=== PATIENT | female | born 1935 ===

== ENCOUNTER 2019-11-01 15:19 | Inpatient (IN) | payer MEDICARE, MEDICAID ==
[~2019-11-01] VITALS: Ht 157.5 cm; Wt 46.1 kg
[2019-11-01] MEDS ORDERED: ACETAMINOPHEN 325 MG TABLET PO ONE (16:15)
[2019-11-01 16:23] LABS: BASOPHILS % (AUTO) 0.4 % (0.0-2.0); EOSINOPHILS % (AUTO) 4.8 % (1.0-6.0); HEMATOCRIT 38.4 % (36-46); HEMOGLOBIN 12.4 g/dL (12.0-16.0); LYMPHOCYTES % (AUTO) 10.2 % (22.0-44.0); MEAN CORPUSCULAR HEMOGLOBIN 31.9 pg (26.0-34.0); MEAN CORPUSCULAR HGB CONC 32.4 G/dL (31.0-37.0); MEAN CORPUSCULAR VOLUME 98 fL (80-100); MONOCYTES # (AUTO) 1.7 K/uL (0.1-1.0); NEUTROPHILS # (AUTO) 6.8 K/uL (1.8-7.7); NEUTROPHILS % (AUTO) 67.6 % (40.0-70.0); PLATELET COUNT (AUTO) 296 K/uL (150-450); RED CELL DISTRIBUTION WIDTH 15.3 % (11.5-14.5)
[2019-11-01] MEDS ORDERED: ALBUTEROL SULFATE HFA 90 MCG/PUFF 8 GM INHALER IH ONE (16:30)
[2019-11-01 16:38] LABS: D-DIMER 0.94 mg/L FEU (0.00-0.50); INR 1.1 (0.9-1.1); PROTHROMBIN TIME 11.4 SEC (9.4-11.6)
[2019-11-01 16:59] LABS: BILIRUBIN,TOTAL 0.7 mg/dL (0.1-1.0); CALCIUM, TOTAL 8.9 mg/dL (8.8-10.5); CREATININE 1.41 mg/dL (0.60-1.30); MAGNESIUM 1.9 mg/dL (1.80-2.40); PHOSPHORUS 3.8 mg/dL (2.5-4.9); POTASSIUM 5.1 mmol/L (3.5-5.1); TOTAL PROTEIN, SERUM 7.4 g/dL (6.4-8.2)
[2019-11-01] MEDS ORDERED: AZITHROMYCIN 500 MG/NS 250 ML IV ONE (17:15)
[2019-11-01] MEDS ORDERED: CefTRIAXone 1 GM/DEXTROSE 50 ML IV ONE (17:15)
[2019-11-01 17:43] LABS: ERYTHROCYTE SEDIMENTATION RATE 75 MM/HR (0-20)
[2019-11-01] MEDS ORDERED: ACETAMINOPHEN 325 MG TABLET PO PRN (17:45)
[2019-11-01] MEDS ORDERED: ONDANSETRON HCL 4 MG/2 ML VIAL IVP PRN (17:45)
[2019-11-01] MEDS ORDERED: FURO20 PO (17:52)
[2019-11-01] MEDS ORDERED: DIAZ2 PO (17:52)
[2019-11-01] MEDS ORDERED: TIOT185 IH (17:52)
[2019-11-01] MEDS ORDERED: APIX5TAB PO (17:52)
[2019-11-01] MEDS ORDERED: DIGO125T84 PO (17:52)
[2019-11-01] MEDS ORDERED: ADV100 IH (17:52)
[2019-11-01] MEDS ORDERED: LOSA25TA71 PO (17:52)
[2019-11-01] MEDS ORDERED: METF-911 PO (17:52)
[2019-11-01 20:33] LABS: GLUCOSE,POINT OF CARE 140 MG/DL (70-110)
[2019-11-02] MEDS ORDERED: ONDANSETRON HCL 4 MG/2 ML VIAL IVP PRN (01:30)
[2019-11-02] MEDS ORDERED: MAGNESIUM HYDROXIDE SUSPENSION 30 ML UDCUP PO PRN (01:30)
[2019-11-02] MEDS ORDERED: MORPHINE SULFATE 2 MG/ML SYRINGE IVP PRN (01:30)
[2019-11-02] MEDS ORDERED: ZOLPIDEM TARTRATE 5 MG TABLET PO PRN (01:30)
[2019-11-02] MEDS ORDERED: HYDROCODONE/ACETAMINOPHEN 5-325 MG TABLET PO PRN (01:30)
[2019-11-02] MEDS ORDERED: AZITHROMYCIN 500 MG/NS 250 ML IV SCH (01:30)
[2019-11-02] MEDS ORDERED: ACETAMINOPHEN 325 MG TABLET PO PRN (01:30)
[2019-11-02] MEDS ORDERED: BISACODYL 10 MG RECTAL RECTAL SUPPOSITORY PR PRN (01:30)
[2019-11-02] MEDS: DIGOXIN 125 MCG TABLET PO SCH (02:40)
[2019-11-02] MEDS: IPRATROPIUM BROMIDE 0.5 MG/2.5 ML NEB SOLUTION NEB PRN ×2 (03:25→11:05)
[2019-11-02] MEDS: ALBUTEROL SULFATE 2.5 MG/0.5 ML NEB SOLUTION NEB PRN ×2 (03:25→11:05)
[2019-11-02 03:37] LABS: GLUCOSE,POINT OF CARE 152 MG/DL (70-110)
[2019-11-02] MEDS: LOSARTAN POTASSIUM 25 MG TABLET PO SCH (07:31)
[2019-11-02 07:36] LABS: GLUCOSE,POINT OF CARE 121 MG/DL (70-110)
[2019-11-02] MEDS ORDERED: HEPARIN SODIUM,PORCINE 5,000 UNITS/ML VIAL SQ SCH (08:00)
[2019-11-02] MEDS ORDERED: APIXABAN 5 MG TABLET PO SCH (09:00)
[2019-11-02] MEDS: DOCUSATE SODIUM 100 MG CAPSULE PO SCH ×2 (10:27→22:00)
[2019-11-02] MEDS: DIAZEPAM 2 MG TABLET PO SCH (10:27)
[2019-11-02] MEDS: FUROSEMIDE 20 MG TABLET PO SCH ×2 (10:27→22:00)
[2019-11-02 12:41] LABS: BASOPHILS % (AUTO) 0.8 % (0.0-2.0); EOSINOPHILS % (AUTO) 2.1 % (1.0-6.0); HEMATOCRIT 34.7 % (36-46); HEMOGLOBIN 11.8 g/dL (12.0-16.0); LYMPHOCYTES # (AUTO) 0.8 K/uL (1.0-4.8); LYMPHOCYTES % (AUTO) 11.6 % (22.0-44.0); MEAN CORPUSCULAR HEMOGLOBIN 32.9 pg (26.0-34.0); MEAN CORPUSCULAR HGB CONC 33.9 G/dL (31.0-37.0); MEAN CORPUSCULAR VOLUME 97 fL (80-100); MONOCYTES # (AUTO) 1.2 K/uL (0.1-1.0); NEUTROPHILS # (AUTO) 5.1 K/uL (1.8-7.7); NEUTROPHILS % (AUTO) 69.5 % (40.0-70.0); PLATELET COUNT (AUTO) 244 K/uL (150-450); RED BLOOD CELL COUNT(AUTO) 3.58 MIL/uL (4.00-5.20); RED CELL DISTRIBUTION WIDTH 15.3 % (11.5-14.5)
[2019-11-02] MEDS: TIOTROPIUM BROMIDE 18 MCG/INH HANDIHALER [5] IH SCH (13:02)
[2019-11-02 13:12] LABS: ALBUMIN 2.6 g/dL (3.4-5.0); BILIRUBIN,TOTAL 0.7 mg/dL (0.1-1.0); CALCIUM, TOTAL 9.2 mg/dL (8.8-10.5); CREATININE 1.57 mg/dL (0.60-1.30); POTASSIUM 5.2 mmol/L (3.5-5.1); TOTAL PROTEIN, SERUM 6.5 g/dL (6.4-8.2)
[2019-11-02 16:50] VITALS: BP 170/104
[2019-11-02 18:00] VITALS: BP 162/82
[2019-11-02 18:11] VITALS: BP 170/104
[2019-11-02] MEDS ORDERED: SODIUM CHLORIDE 0.9% 500 ML IV ONE (20:12)
[2019-11-02 21:14] VITALS: BP 136/87
[2019-11-02] MEDS: CefTRIAXone 1 GM/DEXTROSE 50 ML IV SCH (22:00)
[2019-11-02] MEDS: AZITHROMYCIN 500 MG/NS 250 ML IV SCH (22:58)
[2019-11-02] MEDS ORDERED: HEPARIN SODIUM,PORCINE 5,000 UNITS/ML VIAL IVP PRN (23:15)
[2019-11-03 00:18] VITALS: BP 130/72
[2019-11-03] MEDS: HEPARIN SODIUM 25000 UNITS/D5W 250 ML IV PRN (00:23)
[2019-11-03] MEDS: DIGOXIN 125 MCG TABLET PO SCH (00:42)
[2019-11-03] MEDS: LOSARTAN POTASSIUM 25 MG TABLET PO SCH (05:51)
[2019-11-03 06:14] VITALS: BP 148/71
[2019-11-03 06:55] LABS: EOSINOPHILS % (AUTO) 1.3 % (1.0-6.0); HEMATOCRIT 35.2 % (36-46); LYMPHOCYTES # (AUTO) 1.1 K/uL (1.0-4.8); LYMPHOCYTES % (AUTO) 14.3 % (22.0-44.0); MEAN CORPUSCULAR HEMOGLOBIN 33.2 pg (26.0-34.0); MEAN CORPUSCULAR HGB CONC 34.2 G/dL (31.0-37.0); MEAN CORPUSCULAR VOLUME 97 fL (80-100); MONOCYTES # (AUTO) 1.5 K/uL (0.1-1.0); MONOCYTES % (AUTO) 19.9 % (2.0-9.0); NEUTROPHILS # (AUTO) 4.9 K/uL (1.8-7.7); NEUTROPHILS % (AUTO) 63.5 % (40.0-70.0); PLATELET COUNT (AUTO) 217 K/uL (150-450); RED BLOOD CELL COUNT(AUTO) 3.63 MIL/uL (4.00-5.20); RED CELL DISTRIBUTION WIDTH 15.2 % (11.5-14.5)
[2019-11-03 07:30] LABS: INR 1.9 (0.9-1.1); PROTHROMBIN TIME 18.9 SEC (9.4-11.6)
[2019-11-03 07:32] VITALS: BP 129/72
[2019-11-03] MEDS: FUROSEMIDE 20 MG TABLET PO SCH (08:38)
[2019-11-03] MEDS: DIAZEPAM 2 MG TABLET PO SCH (08:38)
[2019-11-03] MEDS: DOCUSATE SODIUM 100 MG CAPSULE PO SCH ×2 (08:39→22:20)
[2019-11-03] MEDS: TIOTROPIUM BROMIDE 18 MCG/INH HANDIHALER [5] IH SCH (09:52)
[2019-11-03 10:29] VITALS: BP 132/97
[2019-11-03 15:33] VITALS: BP 122/82
[2019-11-03] MEDS: CARVEDILOL 6.25 MG TABLET PO SCH ×2 (16:22→22:20)
[2019-11-03 16:28] LABS: CALCIUM, TOTAL 8.9 mg/dL (8.8-10.5); CREATININE 1.86 mg/dL (0.60-1.30); POTASSIUM 5.2 mmol/L (3.5-5.1)
[2019-11-03 16:34] LABS: DIGOXIN 3.87 ng/mL (0.90-2.00)
[2019-11-03] MEDS: HEPARIN SODIUM,PORCINE 5,000 UNITS/ML VIAL IVP PRN (17:14)
[2019-11-03 20:15] VITALS: BP 155/82
[2019-11-03] MEDS: FUROSEMIDE 40 MG TABLET PO SCH (22:20)
[2019-11-03] MEDS: ATORVASTATIN CALCIUM 20 MG TABLET PO SCH (22:20)
[2019-11-03] MEDS: CefTRIAXone 1 GM/DEXTROSE 50 ML IV SCH (22:20)
[2019-11-03] MEDS: AZITHROMYCIN 500 MG/NS 250 ML IV SCH (22:21)
[2019-11-04] VITALS (7 sets, daily range): BP systolic 111–152; BP diastolic 54–80
[2019-11-04] MEDS: LOSARTAN POTASSIUM 25 MG TABLET PO SCH (06:30)
[2019-11-04] MEDS: TIOTROPIUM BROMIDE 18 MCG/INH HANDIHALER [5] IH SCH (08:00)
[2019-11-04] MEDS: DIAZEPAM 2 MG TABLET PO SCH (08:38)
[2019-11-04] MEDS: FUROSEMIDE 40 MG TABLET PO SCH ×2 (08:38→21:24)
[2019-11-04] MEDS: DOCUSATE SODIUM 100 MG CAPSULE PO SCH ×2 (08:38→21:24)
[2019-11-04] MEDS: CARVEDILOL 6.25 MG TABLET PO SCH (08:40)
[2019-11-04 08:59] LABS: BASOPHILS % (AUTO) 0.9 % (0.0-2.0); EOSINOPHILS % (AUTO) 4.1 % (1.0-6.0); HEMATOCRIT 36.1 % (36-46); HEMOGLOBIN 12.2 g/dL (12.0-16.0); LYMPHOCYTES # (AUTO) 0.8 K/uL (1.0-4.8); LYMPHOCYTES % (AUTO) 9.1 % (22.0-44.0); MEAN CORPUSCULAR HEMOGLOBIN 33.2 pg (26.0-34.0); MEAN CORPUSCULAR HGB CONC 33.9 G/dL (31.0-37.0); MEAN CORPUSCULAR VOLUME 98 fL (80-100); MONOCYTES # (AUTO) 1.4 K/uL (0.1-1.0); MONOCYTES % (AUTO) 14.9 % (2.0-9.0); NEUTROPHILS # (AUTO) 6.6 K/uL (1.8-7.7); PLATELET COUNT (AUTO) 237 K/uL (150-450); RED BLOOD CELL COUNT(AUTO) 3.68 MIL/uL (4.00-5.20); RED CELL DISTRIBUTION WIDTH 15.1 % (11.5-14.5)
[2019-11-04 09:49] LABS: ALBUMIN 2.4 g/dL (3.4-5.0); BILIRUBIN,TOTAL 0.5 mg/dL (0.1-1.0); CALCIUM, TOTAL 8.8 mg/dL (8.8-10.5); CREATININE 1.81 mg/dL (0.60-1.30); MAGNESIUM 2.2 mg/dL (1.80-2.40); POTASSIUM 4.8 mmol/L (3.5-5.1)
[2019-11-04 09:53] LABS: DIGOXIN 3.05 ng/mL (0.90-2.00)
[2019-11-04] MEDS: ALBUTEROL SULFATE 2.5 MG/0.5 ML NEB SOLUTION NEB SCH ×3 (14:47→23:21)
[2019-11-04] MEDS: IPRATROPIUM BROMIDE 0.5 MG/2.5 ML NEB SOLUTION NEB SCH ×3 (14:47→23:21)
[2019-11-04] MEDS: HEPARIN SODIUM 25000 UNITS/D5W 250 ML IV PRN (17:56)
[2019-11-04] MEDS: ATORVASTATIN CALCIUM 20 MG TABLET PO SCH (21:24)
[2019-11-04] MEDS: CefTRIAXone 1 GM/DEXTROSE 50 ML IV SCH (21:24)
[2019-11-04] MEDS: AZITHROMYCIN 500 MG/NS 250 ML IV SCH (22:17)
[2019-11-04 22:55] LABS: GLUCOMETER DEV NAME(LOC) 5S.1; GLUCOSE,POINT OF CARE 162 MG/DL (70-110)
[2019-11-05] MEDS ORDERED: SODIUM CHLORIDE 0.9% 100 ML ONE (00:32)
[2019-11-05] MEDS: IPRATROPIUM BROMIDE 0.5 MG/2.5 ML NEB SOLUTION NEB SCH ×6 (02:59→22:50)
[2019-11-05] MEDS: ALBUTEROL SULFATE 2.5 MG/0.5 ML NEB SOLUTION NEB SCH ×6 (02:59→22:50)
[2019-11-05 05:28] VITALS: BP 126/51
[2019-11-05] MEDS: LOSARTAN POTASSIUM 25 MG TABLET PO SCH (06:30)
[2019-11-05 06:56] LABS: BASOPHILS % (AUTO) 0.5 % (0.0-2.0); EOSINOPHILS % (AUTO) 4.4 % (1.0-6.0); HEMATOCRIT 35.4 % (36-46); LYMPHOCYTES # (AUTO) 0.8 K/uL (1.0-4.8); LYMPHOCYTES % (AUTO) 9.6 % (22.0-44.0); MEAN CORPUSCULAR HEMOGLOBIN 32.8 pg (26.0-34.0); MEAN CORPUSCULAR HGB CONC 33.8 G/dL (31.0-37.0); MEAN CORPUSCULAR VOLUME 97 fL (80-100); MONOCYTES # (AUTO) 1.1 K/uL (0.1-1.0); MONOCYTES % (AUTO) 14.1 % (2.0-9.0); NEUTROPHILS # (AUTO) 5.7 K/uL (1.8-7.7); NEUTROPHILS % (AUTO) 71.4 % (40.0-70.0); PLATELET COUNT (AUTO) 267 K/uL (150-450); RED BLOOD CELL COUNT(AUTO) 3.65 MIL/uL (4.00-5.20); RED CELL DISTRIBUTION WIDTH 15.6 % (11.5-14.5)
[2019-11-05] MEDS: HEPARIN SODIUM,PORCINE 5,000 UNITS/ML VIAL IVP PRN (07:26)
[2019-11-05] MEDS: HEPARIN SODIUM 25000 UNITS/D5W 250 ML IV PRN (07:31)
[2019-11-05 07:35] VITALS: BP 137/58
[2019-11-05 07:43] LABS: ALBUMIN 2.1 g/dL (3.4-5.0); BILIRUBIN,TOTAL 0.4 mg/dL (0.1-1.0); CALCIUM, TOTAL 8.4 mg/dL (8.8-10.5); CREATININE 1.61 mg/dL (0.60-1.30); POTASSIUM 4.2 mmol/L (3.5-5.1); TOTAL PROTEIN, SERUM 5.5 g/dL (6.4-8.2)
[2019-11-05 07:48] LABS: DIGOXIN 2.29 ng/mL (0.90-2.00)
[2019-11-05] MEDS: DIAZEPAM 2 MG TABLET PO SCH (08:26)
[2019-11-05] MEDS: DOCUSATE SODIUM 100 MG CAPSULE PO SCH ×2 (08:26→20:31)
[2019-11-05] MEDS: FUROSEMIDE 40 MG TABLET PO SCH ×2 (08:26→20:32)
[2019-11-05] MEDS: HEPARIN SODIUM,PORCINE 5,000 UNITS/ML VIAL SQ SCH ×2 (08:27→20:32)
[2019-11-05] MEDS: TIOTROPIUM BROMIDE 18 MCG/INH HANDIHALER [5] IH SCH (10:50)
[2019-11-05 11:02] VITALS: BP_SYST 135; BP_SYST 141; BP_DIAS 67; BP_DIAS 78
[2019-11-05 15:35] VITALS: BP 146/90
[2019-11-05] MEDS: CefTRIAXone 1 GM/DEXTROSE 50 ML IV SCH (20:31)
[2019-11-05] MEDS: ATORVASTATIN CALCIUM 20 MG TABLET PO SCH (20:32)
[2019-11-05 20:55] VITALS: BP 140/67
[2019-11-05] MEDS: AZITHROMYCIN 500 MG/NS 250 ML IV SCH (21:32)
[2019-11-05 23:15] VITALS: BP 118/61
[2019-11-06] MEDS: ALBUTEROL SULFATE 2.5 MG/0.5 ML NEB SOLUTION NEB SCH ×4 (02:39→15:20)
[2019-11-06] MEDS: IPRATROPIUM BROMIDE 0.5 MG/2.5 ML NEB SOLUTION NEB SCH ×4 (02:39→15:20)
[2019-11-06 04:59] VITALS: BP 129/68
[2019-11-06 05:36] LABS: BASOPHILS % (AUTO) 1.2 % (0.0-2.0); HEMATOCRIT 36.1 % (36-46); HEMOGLOBIN 12.2 g/dL (12.0-16.0); LYMPHOCYTES # (AUTO) 0.9 K/uL (1.0-4.8); LYMPHOCYTES % (AUTO) 11.5 % (22.0-44.0); MEAN CORPUSCULAR HEMOGLOBIN 33.1 pg (26.0-34.0); MEAN CORPUSCULAR HGB CONC 33.6 G/dL (31.0-37.0); MEAN CORPUSCULAR VOLUME 99 fL (80-100); MONOCYTES # (AUTO) 1.3 K/uL (0.1-1.0); NEUTROPHILS # (AUTO) 4.7 K/uL (1.8-7.7); NEUTROPHILS % (AUTO) 62.3 % (40.0-70.0); PLATELET COUNT (AUTO) 256 K/uL (150-450); RED BLOOD CELL COUNT(AUTO) 3.67 MIL/uL (4.00-5.20); RED CELL DISTRIBUTION WIDTH 15.7 % (11.5-14.5)
[2019-11-06] MEDS: LOSARTAN POTASSIUM 25 MG TABLET PO SCH (05:54)
[2019-11-06 05:59] LABS: CALCIUM, TOTAL 8.6 mg/dL (8.8-10.5); CREATININE 1.39 mg/dL (0.60-1.30); DIGOXIN 1.87 ng/mL (0.90-2.00); POTASSIUM 4.7 mmol/L (3.5-5.1)
[2019-11-06] MEDS: HEPARIN SODIUM,PORCINE 5,000 UNITS/ML VIAL SQ SCH (08:12)
[2019-11-06] MEDS: FUROSEMIDE 40 MG TABLET PO SCH (08:12)
[2019-11-06] MEDS: DOCUSATE SODIUM 100 MG CAPSULE PO SCH (08:12)
[2019-11-06] MEDS: TIOTROPIUM BROMIDE 18 MCG/INH HANDIHALER [5] IH SCH (08:13)
[2019-11-06 08:24] VITALS: BP 144/75
[2019-11-06] MEDS ORDERED: APIXABAN 2.5 MG TABLET PO SCH (09:00)
[2019-11-06] MEDS ORDERED: APIX2.5T PO (10:59)
[2019-11-06] MEDS ORDERED: ATOR20TA86 PO (11:01)
[2019-11-06] MEDS ORDERED: DOCU-275 PO (11:01)
[2019-11-06] MEDS ORDERED: FURO40 PO (11:03)
[2019-11-06] MEDS ORDERED: LOSA25TA71 PO (11:04)
[2019-11-06] MEDS ORDERED: TIOT185 IH (11:05)
[2019-11-06 12:05] VITALS: BP 120/56
== END 2019-11-06 16:00 | disposition home health service (06) | DRG 280 ==
LOC: EMS 15:21 → ICUN 11-02 01:17 → 5N 11-02 15:44 → 5S 11-04 15:35
PROVIDERS: ADMIT Hospitalist; ATTEND Hospitalist
DX: I21.4 Non-ST elevation (NSTEMI) myocardial infarction (principal); J18.9 Pneumonia, unspecified organism; E43 Unspecified severe protein-calorie malnutrition; I50.31 Acute diastolic (congestive) heart failure; R65.11 Systemic inflammatory response syndrome (SIRS) of non-infectious origin with acute organ dysfunction; J44.1 Chronic obstructive pulmonary disease with (acute) exacerbation; I48.20 Chronic atrial fibrillation, unspecified; I13.0 Hypertensive heart and chronic kidney disease with heart failure and stage 1 through stage 4 chronic kidney disease, or unspecified chronic kidney disease; J44.0 Chronic obstructive pulmonary disease with (acute) lower respiratory infection; N18.3 Chronic kidney disease, stage 3 (moderate); E78.5 Hyperlipidemia, unspecified; E11.22 Type 2 diabetes mellitus with diabetic chronic kidney disease; I71.4 Abdominal aortic aneurysm, without rupture; I25.5 Ischemic cardiomyopathy; I25.10 Atherosclerotic heart disease of native coronary artery without angina pectoris; T46.0X5A Adverse effect of cardiac-stimulant glycosides and drugs of similar action, initial encounter; Y92.89 Other specified places as the place of occurrence of the external cause; Z20.828 Contact with and (suspected) exposure to other viral communicable diseases; Z79.899 Other long term (current) drug therapy
CPT/HCPCS: 71250; 82728; 83605; 83615; 83735; 84100; 84145; 85379; 85651; 87040; 93005; 93306; 94640; 97162; 97530; 99291; J0456; J0696; J1644; J3535; J7040; J7050; 36415-L1; 36415-TC; 71045-TC; 80162-TC; J7613; U0003-CS